=== PATIENT | male | born 1945 | race Caucasian/White ===

== ENCOUNTER 2023-03-28 12:01 | Emergency (ER) | payer MEDICARE, SELFPAY ==
[2023-03-28 12:22] VITALS: BP 131/77
--- NOTE | 2023-03-28 13:52 | ED.GENMED ---
History of Present Illness
General
Chief Complaint: Musculo-Skeletal Complaint
Source: patient
Exam Limitations: none
Time Seen by Provider: 03/28/23 12:33
Nursing documentation reviewed up to this point in time: agreed with
Travel History
Have you had any contact with someone who has COVID-19?: No
Do you have any symptoms of coronavirus? Fever > 100 degrees, chills, cough, shortness of breath, sore throat, loss of taste or smell, muscle aches, or headache?: No
History of Present Illness
History of Present Illness:
37-year-old male with past ministry of hypertension hyperlipidemia, asthma presenting to the emergency department today with concerns of right hip and right knee discomfort worsening over the past few weeks feels like it is 'giving out'
occasionally. Denies any fevers redness swelling warmth abdominal pain nausea vomiting.
Past History
Past History
ED Past Medical History: HTN, Hypercholesterolemia and Other (gout)
ED Past Surgical History: Orthopedic (back surgery)
Social History
Tobacco: Non-smoker
Alcohol: Occasional
Drug: None
Personal: Partner
Living: with family
Review of Systems
Review of Systems
Allergies reviewed?: Yes
All Other Systems: ROS reviewed and negative except as documented in HPI and ROS
Phy Exam
Physical Exam
Physical Exam:
GENERAL: Alert , in no apparent distress
EYE: pupils equal and reactive
NECK: Supple, no significant adenopathy.
ENT: o/p clr, mmm.
CARDIAC: Regular rate and rhythm .
LUNGS: Clear breath sounds bilaterally, no acute respiratory distress, no wheezes/rales/rhonchi
ABDOMEN: Soft, without focal tenderness, no r/g, no cvat
NEUROLOGICAL: Alert and oriented, no focal neuro deficits
SKIN: Warm and dry, skin intact.
MUSCULOSKELETAL: No edema, well perfused.
PSYCH: Normal and appropriate interaction.
Course
Orders/Labs/Results
Orders:
Orders
03/28/23 12:33
CR Knee- Right 4 Or More View* Urgent
Comment:
Reason For Exam: knee pin
Hip, Right 2-3 Views [CR Hip - RT w/wo Pel 2-3 Vw*] Urgent
Comment:
Reason For Exam: right hip pain
Include a pelvis x-ray?: Yes
Vital Signs
Initial and Last Documented VS:
Initial Vital Signs
Temp Pulse Resp BP Pulse Ox
98.7 F 109 18 131/77 98
03/28/23 12:22 03/28/23 12:22 03/28/23 12:22 03/28/23 12:22 03/28/23 12:22
Last Documented Vital Signs
Temp Pulse Resp BP Pulse Ox
98.7 F 109 18 131/77 98
03/28/23 12:22 03/28/23 12:22 03/28/23 12:22 03/28/23 12:22 03/28/23 12:22
MDM/Problems Addressed
MDM/Problems Addressed:
37-year-old male presenting to the emergency department today with concerns of right-sided hip and knee discomfort and the sensation of his right hip 'giving out' occasionally. Here he had an x-ray with significant arthritis but no acute injuries.
Able to range fully at all joints no redness or warmth no signs of infection. Patient with likely symptoms secondary to arthritis plan for outpatient follow-up with orthopedics. Return precautions given. Advised for physical therapy as well.
*Critical Care Note
Total Time (30-74mins, 75-104mins- exclusive of procedures): Not Applicable
ED Attending Note
-
Portions of this chart may have been created with voice recognition software.� Occasional wrong word or��sound alike� substitutions may have occurred due to the inherent limitations of voice recognition software.
Discharge Plan
Departure
Patient Disposition: Home (Routine Discharge)
Date of Disposition: 03/28/23
Time of Disposition: 13:53
Patient with high blood pressure during this ER visit?: No
Condition: Good
Covid-19: Not Applicable
Discharge Problem:
Arthritis, hip
Instructions: Hip Pain (DC)
Prescriptions:
No Action
atorvastatin 20 MG tablet
20 mg PO DAILY
aspirin 81 MG tablet,delayed release (DR/EC)
81 mg PO DAILY
wwhlxqjg-hli-WJ-lycopen-lutein [Centrum Silver] 1 EACH tablet
1 ea PO DAILY
losartan 50 MG tablet
100 mg PO DAILY
allopurinol 300 MG tablet
300 mg PO DAILY
B-complex with vitamin C 1 CAPLET tablet
1 cap PO DAILY
furosemide 40 MG tablet
40 mg PO DAILY
benzonatate 100 MG capsule
100 mg PO TIDPRN PRN (Reason: coughing) Qty: 20 0RF
ondansetron 4 MG tablet,disintegrating
4 mg PO TIDPRN PRN (Reason: nausea) Qty: 12 0RF
doxycycline hyclate 100 MG capsule
100 mg PO Q12 Qty: 14 0RF
Referrals:
Nathan Dawson MD [Active] - Follow up in 1 week
Flip Montoya MD [Family Provider] -
Activity Restrictions/Additional Instructions:
You came to the emergency department today with concerns of hip and knee discomfort. Your x-ray did not show any acute injuries but does show arthritis. This could be causing your symptoms currently. Please appropriately rest follow-up with
physical therapy and orthopedics for further management. Return to the emergency department for any worsening, new or concerning symptoms.
Interventions
Interventions:
*Risk Screen - Suicide Last Done: 03/28/23 12:24
*General Assessment Last Done: 03/28/23 12:24
*Neglect/Abuse Screening Last Done: 03/28/23 12:24
== END 2023-03-28 14:10 | disposition home or self-care (01) ==
LOC: EMR 12:01
PROVIDERS: EMERGENCY PHYSICIAN Emergency Medicine; FAMILY PHYSICIAN Internal Medicine Geriatric Medicine
DX: M16.11 Unilateral primary osteoarthritis, right hip (principal); I10 Essential (primary) hypertension; E78.00 Pure hypercholesterolemia, unspecified; J45.909 Unspecified asthma, uncomplicated
CPT/HCPCS: 99283; 73502; 73564

== ENCOUNTER → 2023-04-13 11:52 | Outpatient (REF) | payer MEDICARE, SELFPAY ==
[2023-04-13 12:46] LABS: % Basophils 0.5 % (0-2); % Eosinophils 0.2 % (0-6); % Immature Granulocytes 0.7 % (0-0.5); % Lymphocytes 22.2 % (20.5-51.1); % Monocytes 15.5 % (1.7-9.3); % Neutrophils 60.9 % (42.2-75.2); Absolute Lymphocytes 1.3 10^3/uL (1.2-3.4); Absolute Monocytes 0.9 10^3/uL (0.1-0.6); Absolute Neutrophils 3.5 10^3/uL (1.4-6.5); Hematocrit 37.3 % (39.0-52.0); Mean Corp Hgb Conc. 34.9 g/dL (33.0-37.0); Mean Corpuscular Hgb 36.2 pg (27.0-31.0); Mean Corpuscular Volume 103.9 fL (80.0-94.0); Mean Platelet Volume 10.8 fL (7.4-10.4); Nucleated Red Blood Cells % 0 % (-); Platelet Count 160 10^3/uL (130-400); Red Blood Cell Count 3.59 10^6/uL (4.70-6.10); Red Cell Dist. Width 13.2 % (11.5-14.5); White Blood Cell Count 5.8 10^3/uL (4.8-10.8)
[2023-04-13 13:24] LABS: Urine Albumin Negative (Neg - Trace); Urine Bilirubin 1+ (Negative); Urine Character Clear (Clear); Urine Color Yellow; Urine Glucose Negative (Negative); Urine Ketone Trace (Negative); Urine Leukocyte Trace (Negative); Urine Nitrite Negative (Negative); Urine Occult Blood Negative (Negative); Urine Specific Gravity 1.005 (<1.030); Urine Urobilinogen 1+ (Neg - 1+)
[2023-04-13 13:37] LABS: ALT (SGPT) 97 U/L (0-50); AST (SGOT) 216 U/L (17-59); Albumin 4.6 g/dl (3.5-5.0); Alkaline Phosphatase 111 U/L (38-126); Blood Urea Nitrogen 14 mg/dl (9-20); Calcium 10.3 mg/dl (8.4-10.2); Carbon Dioxide 30 mmol/L (22-30); Chloride 99 mmol/L (98-107); Glucose 134 mg/dl (70-99); Sodium 137 mmol/L (135-145); Total Bilirubin 1.6 mg/dl (0.2-1.3); Total Cholesterol 224 mg/dl (50-199); Total Protein 7.7 g/dl (6.3-8.2); Triglyceride 97 mg/dl (10-149); Very Low Density Lipoprotein 19 mg/dl (0-30); eGFR > 60.00
[2023-04-13 13:48] LABS: HDL Cholesterol 116 mg/dl; LDL Cholesterol, Calculated 89 mg/dl
[2023-04-13 13:57] LABS: Urine Red Blood Cell None Seen /HPF (0-2); Urine White Cell 0-2 /HPF (0-5)
[2023-04-13 14:04] LABS: PSA, Total - Diagnostic 1.51 ng/ml (0.0-4.0)
[2023-04-14 11:06] LABS: Glycohemoglobin (HgbA1c) 5.9 % (4.0-5.6)
== END ==
LOC: REG 11:52
PROVIDERS: ATTENDING PHYSICIAN Internal Medicine Geriatric Medicine; REFERRING PHYSICIAN Orthopaedic Surgery
DX: M48.062 Spinal stenosis, lumbar region with neurogenic claudication (principal); M10.9 Gout, unspecified; E78.2 Mixed hyperlipidemia; I10 Essential (primary) hypertension; G47.33 Obstructive sleep apnea (adult) (pediatric); Z00.00 Encounter for general adult medical examination without abnormal findings; Z01.89 Encounter for other specified special examinations; Z13.89 Encounter for screening for other disorder; R97.20 Elevated prostate specific antigen [PSA]; E11.9 Type 2 diabetes mellitus without complications
CPT/HCPCS: 36415; 80053; 80061; 81003; 81015; 83036; 84153; 84443; 85025

== ENCOUNTER → 2023-04-20 12:08 | Outpatient (REF) | payer MEDICARE, SELFPAY ==
[2023-04-20 17:30] LABS: Urine Albumin Trace (Neg - Trace); Urine Bilirubin Negative (Negative); Urine Character Clear (Clear); Urine Color Yellow; Urine Glucose Negative (Negative); Urine Ketone Negative (Negative); Urine Leukocyte Negative (Negative); Urine Nitrite Negative (Negative); Urine Occult Blood Negative (Negative); Urine Urobilinogen Negative (Neg - 1+)
== END ==
LOC: CLAB 12:08
PROVIDERS: ATTENDING PHYSICIAN Nurse Practitioner Family
DX: N50.1 Vascular disorders of male genital organs (principal)
CPT/HCPCS: 81003

== ENCOUNTER 2023-05-03 06:09 | Inpatient (IN) | payer MEDICARE, SELFPAY ==
--- NOTE | 2023-04-05 13:11 | CM ---
Patient is scheduled for an elective R TKR on 05/03/23. Spoke with patient's prior to surgery via telephone. Introduced role of Orthopedic Navigator. He reports that he and patient live in a one story home. There is one step to enter. Patient
currently needs assistance with getting in/out of a chair and getting his legs in/out of bed. He is able to dress, toilet and ambulate with a rolling walker on his own. In addition to the walker, patient has a cane. He has never had VN services. PCP
is Dr. Montoya.
Discussed orthopedic program and post surgical plans. Reviewed anticipated length of stay and that goal is for patient to return home at discharge. He is in agreement with tentative plan. Patient will benefit from VN services upon discharge.
Patient will complete online education.
Plan: Orthopedic Navigator will remain available to assist with the care of patient and will reassess discharge needs after surgery.
[2023-04-13 14:00] VITALS: BMI 36.1
[2023-04-13 15:20] VITALS: BMI 36.1
[2023-05-03] VITALS (40 sets, daily range): BP systolic 63–189; BP diastolic 32–108; PULSE 106–121; O2SAT 96; BMI 36.1
[2023-05-03] MEDS: CELEBREX 200 MG PO (07:23)
[2023-05-03] MEDS: TYLENOL 650 MG PO ×4 (07:23→23:02)
[2023-05-03] MEDS: NORMOSOL-R 1000 IV ×2 (07:24→10:04)
[2023-05-03] MEDS: ROXICODONE 5 MG PO (10:07)
[2023-05-03] MEDS: SUBLIMAZE 25 MCG IV (11:47)
--- NOTE | 2023-05-03 12:07 | SUR.PHASEI ---
1200 Pt in to evaluate pt and bp elevated. Pt medicated with fentanyl prior to PT,. Awaiting pt's room to be cleaned.
[2023-05-03] MEDS: SUBLIMAZE 50 MCG IV (12:16)
[2023-05-03] MEDS: ZYLOPRIM 300 MG PO (13:57)
[2023-05-03] MEDS: COZAAR 25 MG PO (13:58)
[2023-05-03] MEDS: ROXICODONE 10 MG PO ×3 (13:59→23:02)
[2023-05-03] MEDS: ULTRAM PO (14:05)
[2023-05-03] MEDS: LIPITOR PO (14:05)
[2023-05-03] MEDS: NEURONTIN PO (14:05)
[2023-05-03] MEDS: ANCEF 5 IV ×2 (16:53→23:02)
[2023-05-03] MEDS: ASPIRIN 325 MG PO (16:57)
--- NOTE | 2023-05-03 17:32 | PTCARENOTE ---
Received patient from [facility] via bed around 1300 in stable condition. Patient on tele- SR/ST. Neurovascular check within normal limits. Foot pumps and Nilesh stockins on. Patient unable to void despite several attempts. Bladder scanned for 440 ml and
straight cathed for 575 ml. Will continue to monitor. Call beasley in reach.
[2023-05-03] MEDS: ULTRAM 50 MG PO (20:18)
[2023-05-03] MEDS: NEURONTIN 300 MG PO (20:18)
[2023-05-03] MEDS: DECADRON 4 MG PO (20:18)
[2023-05-03] MEDS: SENOKOT 17.1999999999999993 MG PO (20:19)
[2023-05-03] MEDS: COLACE 100 MG PO (20:19)
[2023-05-03] MEDS: TORADOL 15 MG IV (20:19)
[2023-05-03] MEDS: BACTROBAN 2% OINTMENT 1 APPLIC NASAL (20:20)
--- NOTE | 2023-05-03 21:40 | PTCARENOTE ---
Patient refused to get OOB at this time
[2023-05-03] MEDS: DESYREL 50 MG PO (23:01)
[2023-05-03] MEDS: PEPCID 20 MG PO (23:01)
[2023-05-04] VITALS (9 sets, daily range): BP systolic 157–197; BP diastolic 81–118; PULSE 81–86; O2SAT 95
--- NOTE | 2023-05-04 01:10 | PTCARENOTE ---
Addendum entered by Julissa Christine RN 05/04/23 05:19:
P-180/106, HR- 80s-90s. JASMIN Loredo made aware, will give ordered 0800am [employer] now as per advise.
Original Note:
BP- 169/100 ( manual ), 198/110 ( automatic), HR- 110. No pain. Asymptomatic. JASMIN Loredo made aware. Will recheck in AM as per advise.
[2023-05-04] MEDS: ROXICODONE 10 MG PO (04:30)
[2023-05-04] MEDS: COZAAR 25 MG PO (04:35)
[2023-05-04] MEDS: TYLENOL 650 MG PO ×3 (04:37→11:28)
[2023-05-04] MEDS: CELEBREX 200 MG PO (08:28)
[2023-05-04] MEDS: ASPIRIN 325 MG PO (08:29)
[2023-05-04] MEDS: ULTRAM 50 MG PO (08:29)
[2023-05-04] MEDS: DECADRON 4 MG PO (08:29)
[2023-05-04] MEDS: LIPITOR 20 MG PO (08:29)
[2023-05-04] MEDS: COLACE 100 MG PO (08:29)
[2023-05-04] MEDS: ZYLOPRIM 300 MG PO (08:29)
[2023-05-04] MEDS: NEURONTIN 300 MG PO (08:29)
[2023-05-04] MEDS: SENOKOT 17.1999999999999993 MG PO (08:29)
[2023-05-04] MEDS: TORADOL 15 MG IV (08:30)
[2023-05-04] MEDS: BACTROBAN 2% OINTMENT 1 APPLIC NASAL (08:30)
[2023-05-04] MEDS: COZAAR 75 MG PO (08:41)
--- NOTE | 2023-05-04 09:08 | CM ---
Addendum entered by Maliha Rivera 05/04/23 11:13:
Patient worked with PT and OT and did well; he will be able to return home. Met with patient and his and again reviewed VN services.
Original Note:
Reviewed chart and held rounds with PT, OT and nursing. Patient admitted as planned for elective R TKR. Met with patient at bedside. Confirmed information previously obtained for assessment. Also discussed discharge plans. The plan, at this time, is
for patient to return home at discharge. He will have support from when he goes home. Reviewed VN services including start of care (tentatively 05/04), services to be ordered (PT, SN) and frequency/duration of services. Options list provided
and PAC data reviewed. Patient selects [facility].
Patient has a cane, rolling walker, wheel chair, raised toilet seat with rails and shower seat at home.
VN referral was completed and sent to [facility] through [employer] with request for start of care on 05/04. Confirmation received of their ability to accept case. retail store clerk to fax discharge instructions to [phone] when complete.
[facility] will use [facility] for [facility]
Discharge plans were reviewed with patient's on 05/03. He will be present for therapy today.
--- NOTE | 2023-05-04 11:00 | W.PN.ORTHO ---
Today's Communication / Plan
-
d/c
Assessment
.
Distal Motor Intact: Yes
Dressing:
Clean, dry and intact.
Assessment:
HTN-accelerated--home antihypertensives xdbqlcc-rpjpragt-OS elevation lkely secondary to pain
Plan
.
Surgery / Date: O/A s/p R TKA Dr. Gómez 05/03/23
DVT Prophylaxis: Aspirin
Activity:
Out of bed.
PT/OT
Subjective
.
.:
Patient resting comfortably.
Vital Signs and Labs
.
Vital Signs and Labs:
Temp Pulse Resp BP Pulse Ox
98.1 F 101 18 157/91 94
05/04/23 07:35 05/04/23 10:49 05/04/23 10:49 05/04/23 10:49 05/04/23 07:35
Non-invasive Hgb result: 12.5
Physical Exam
-
HEENT: No pallor, cyanosis, or jaundice. Throat clear.
NECK: Supple. No JVD.
RESPIRATORY: Lungs clear to auscultation.
CVS: S1, S2 normal. RRR.� No murmur, rub or gallop.
ABDOMEN: Soft, non-tender. No distension. BS+/normal.
EXTREMITIES: strength equal, no calf pain with palpation
TRANSPLANT SURGEON: AOx3. No focal deficits. industrial editor grossly intact
--- NOTE | 2023-05-04 11:10 | W.DS.TRANS ---
DC Summary - Social Science Instructor
-
Discharge Instructions:
Discharge Diagnosis/Procedures O/A s/p R TKA Dr. Gómez 05/03/23
Diet As tolerated
Activity With Walker
Driving Restrictions No driving
Other Services VN,PT
Instructions:
Stand-Alone Forms: Total Hip/Knee Replacement D/C
Changes to Home Medications: Yes
Discharge Medications:
DC Medications w/original date entered in [facility]
atorvastatin 20 mg tablet 20 mg PO DAILY High Cholesterol 05/19/18
hggytdmv-mgw-fxhwv acid 0.4 mg-lycopene 300 mcg-lutein 250 mcg tablet (Centrum Silver) 1 ea PO DAILY Supplement 05/19/18
allopurinol 300 mg tablet 300 mg PO DAILY Gout 08/11/21
furosemide 40 mg tablet 20 mg PO DAILY Fluid Retention/Swelling 08/11/21
losartan 100 mg tablet 100 mg PO DAILY Blood Pressure 04/10/23
trazodone 50 mg tablet 50 - 100 mg PO HS sleep 04/10/23
mupirocin 2 % topical ointment 1 applic topical BID infection prevention #1 tube 04/13/23
tamsulosin 0.4 mg capsule (Flomax) 0.4 mg PO HS urinary retention #7 caps 04/13/23
Saccharomyces boulardii 250 mg capsule (Florastor) 250 mg PO BID #1 cap 05/04/23
acetaminophen 325 mg capsule (Tylenol) 650 mg PO QID #2 caps 05/04/23
aspirin 325 mg tablet 325 mg PO DAILY blood clot prevention #1 tab 05/04/23
cefadroxil 500 mg capsule 500 mg PO BID infection prevention #14 caps 05/04/23
docusate sodium 100 mg capsule (Colace) 100 mg PO BID stool softner #1 cap 05/04/23
famotidine 20 mg tablet 20 mg PO HS GI prophylaxis #30 tabs 05/04/23
gabapentin 300 mg capsule 300 mg PO BID sleep/pain #20 caps 05/04/23
magnesium hydroxide 400 mg/5 mL oral suspension (Milk of Magnesia) 30 ml PO HS PRN Constipation #1 mL 05/04/23
meloxicam 15 mg tablet 15 mg PO DAILY anti-inflammatory #14 tabs 05/04/23
oxycodone 5 mg tablet 5 - 10 mg PO Q6HPRN PRN 1 tab moderate-2 tabs severe pain #30 tabs 05/04/23
prednisone 10 mg tablet 40 mg PO TAPER inflammation #20 tabs 05/04/23
sennosides 8.6 mg tablet (Senokot) 17.2 mg PO BID laxative #2 tabs 05/04/23
tramadol 50 mg tablet 50 mg PO BID #20 tabs 05/04/23
Home Medication Changes
tamsulosin 0.4 mg capsule (Flomax) 0.4 mg PO HS urinary retention #7 caps 04/13/23�
Saccharomyces boulardii 250 mg capsule (Florastor) 250 mg PO BID #1 cap 05/04/23�
cefadroxil 500 mg capsule 500 mg PO BID infection prevention #14 caps 05/04/23�
famotidine 20 mg tablet 20 mg PO HS GI prophylaxis #30 tabs 05/04/23�
gabapentin 300 mg capsule 300 mg PO BID sleep/pain #20 caps 05/04/23�
oxycodone 5 mg tablet 5 - 10 mg PO Q6HPRN PRN 1 tab moderate-2 tabs severe pain #30 tabs 05/04/23�
prednisone 10 mg tablet 40 mg PO TAPER inflammation #20 tabs 05/04/23�
tramadol 50 mg tablet 50 mg PO BID #20 tabs 05/04/23�
Pending Results: No
[2023-05-04] MEDS: DECADRON 4 MG IV (11:24)
[2023-05-04] MEDS: LASIX 20 MG PO (11:24)
--- NOTE | 2023-05-04 13:29 | PTCARENOTE ---
PT with elevated BPs. provider Aide Zimmerman made aware. See vitals for BP numbers. Provider Erasmo is comfortable with Dc with most recent reading. pt asymptomatic.
== END 2023-05-04 14:09 | disposition home health service (06) | DRG 470 ==
LOC: 2 SOUTH 06:09
PROVIDERS: ADMITTING PHYSICIAN Orthopaedic Surgery; FAMILY PHYSICIAN Internal Medicine Geriatric Medicine
PROC: 0SRC0J9 Replacement of Right Knee Joint with Synthetic Substitute, Cemented, Open Approach (ICD-10-PCS; 2023-05-03)
DX: M17.11 Unilateral primary osteoarthritis, right knee (principal); I47.20 Ventricular tachycardia, unspecified; E66.9 Obesity, unspecified; M10.9 Gout, unspecified; I10 Essential (primary) hypertension; K75.9 Inflammatory liver disease, unspecified; K76.0 Fatty (change of) liver, not elsewhere classified; M48.00 Spinal stenosis, site unspecified; E78.5 Hyperlipidemia, unspecified; R33.9 Retention of urine, unspecified; G47.00 Insomnia, unspecified; G47.33 Obstructive sleep apnea (adult) (pediatric); Z68.36 Body mass index [BMI] 36.0-36.9, adult; Z91.199 Patient's noncompliance with other medical treatment and regimen due to unspecified reason; Z79.1 Long term (current) use of non-steroidal anti-inflammatories (NSAID)
CPT/HCPCS: 36415; 73560; 87070; 97110; 97116; 97163; 97167; 97530; 97535; C1713; C1776

== ENCOUNTER 2023-05-29 12:07 | Outpatient (RCR) | payer MEDICARE, SELFPAY | END 2023-05-29 23:59 | disposition home or self-care (01) | LOC: RPT 12:07 | PROVIDERS: ATTENDING PHYSICIAN Physician Assistant; FAMILY PHYSICIAN Internal Medicine Geriatric Medicine | DX: Z47.1 Aftercare following joint replacement surgery (principal); Z73.6 Limitation of activities due to disability; R26.89 Other abnormalities of gait and mobility; M25.561 Pain in right knee; M25.551 Pain in right hip; Z96.651 Presence of right artificial knee joint | CPT/HCPCS: 97010; 97110; 97162; 97530 ==

== ENCOUNTER 2023-06-29 11:00 | Outpatient (RCR) | payer MEDICARE, SELFPAY | END 2023-06-29 23:59 | disposition home or self-care (01) | LOC: RPT 11:00 | PROVIDERS: ATTENDING PHYSICIAN Physician Assistant; FAMILY PHYSICIAN Internal Medicine Geriatric Medicine | DX: Z47.1 Aftercare following joint replacement surgery (principal); Z96.651 Presence of right artificial knee joint; Z73.6 Limitation of activities due to disability | CPT/HCPCS: 97110; 97112; 97530 ==

== ENCOUNTER 2023-07-06 11:02 | Outpatient (RCR) | payer MEDICARE, SELFPAY | END 2023-07-06 23:59 | disposition home or self-care (01) | LOC: RPT 11:02 | PROVIDERS: ATTENDING PHYSICIAN Physician Assistant; FAMILY PHYSICIAN Internal Medicine Geriatric Medicine | DX: Z47.1 Aftercare following joint replacement surgery (principal); Z96.651 Presence of right artificial knee joint; Z73.6 Limitation of activities due to disability | CPT/HCPCS: 97110; 97530 ==

== ENCOUNTER → 2023-12-04 13:40 | Outpatient (REF) | payer MEDICARE, SELFPAY | LOC: HWRAD 13:40 | PROVIDERS: ATTENDING PHYSICIAN Internal Medicine Geriatric Medicine | DX: R26.89 Other abnormalities of gait and mobility (principal); S19.9XXA Unspecified injury of neck, initial encounter; W19.XXXA Unspecified fall, initial encounter | CPT/HCPCS: 70450; 72040 ==

== ENCOUNTER 2023-12-15 17:04 | Emergency (ER) | payer MEDICARE, SELFPAY ==
--- NOTE | 2023-12-15 17:16 | ED.GENMED ---
ED Provider Triage
<Chavo Nguyen PA-C - Last Filed: 12/15/23 17:20>
-
Patient seen by provider in Triage?: Seen in Triage
Attestation: A medical screening examination has been initiated by a qualified medical provider. Based on the assessment performed at this time, it has been determined that an emergent medical condition may exist and the patient has been informed
that further medical evaluation and possible additional diagnostic testing may be needed.
HPI: 78-year-old male presenting to the emergency department for evaluation of reported generalized shaking noting that if he holds his arm or leg for 10 to 20 seconds he just randomly starts shaking. Patient notes that he has been having falls
since a right knee surgery that was a few months ago. Patient primary care wanted him to come to the ER yesterday but patient decided to wait it out and came today. Patient notes no pain, fevers or any other infectious symptoms presently. Labs
ordered. Patient otherwise hemodynamically stable.
GENERAL: Alert , in no apparent distress
EYE: No visual abnormalities.
NECK: Trachea midline
ENT: No visible abnormalities.
LUNGS: No acute respiratory distress
NEUROLOGICAL: Alert and oriented
SKIN: Skin intact. No visible changes.
MUSCULOSKELETAL: Moving extremities normally
PSYCH: Normal and appropriate interaction.
This is a medical evaluation conducted in person to initiate diagnostic evaluation and provide initial therapeutics. Please see further documentation by the treating clinician.
History of Present Illness
<Chavo Nguyen PA-C - Last Filed: 12/15/23 17:20>
General
Chief Complaint: Fall
Time Seen by Provider: 12/15/23 20:14
<Edd Guevara DO - Last Filed: 12/15/23 20:44>
History of Present Illness
History of Present Illness:
TIME OF INITIAL ENCOUNTER: 8:15 PM
HPI: 78-year-old male presenting to the emergency department for evaluation of reported generalized shaking noting that if he holds his arm or leg for 10 to 20 seconds he just randomly starts shaking. Patient notes that he has been having falls
since a right knee surgery that was a few months ago. Patient primary care wanted him to come to the ER yesterday but patient decided to wait it out and came today. Patient notes no pain, fevers or any other infectious symptoms presently.
EXAM:
GENERAL: Well appearing in no distress, elevated BMI
HEENT: Moist oral mucosa, periorbital edema noted
CARDIOVASCULAR: No murmurs, normal heart rate, regular rhythm, No chest wall tenderness
PULMONARY: No respiratory distress, breath sounds are clear and equal
ABDOMEN: Soft with no peritoneal signs, no tenderness
NEUROLOGIC: Fair strength all extremities, no coordination deficits, mild asterixis noted
PSYCHIATRIC: Appropriate mental status, normal insight and judgement
EXTREMITIES: Nontender, no edema, moves all extremities equally
SKIN: No rash, no lesions, some generalized erythema noted to the face suggestive of alcohol use disorder
NUMBER AND COMPLEXITY OF PROBLEMS ADDRESSED AT THE ENCOUNTER
� Chronic conditions affecting care: High blood pressure, hyperlipidemia
� Acute Exacerbation and/or Progression of Chronic Illness: This is a subacute but worsening problem
� Differential Diagnosis includes: Alcohol related tremor, essential tremor, intracranial mass unlikely based on recent CT imaging
AMOUNT AND/OR COMPLEXITY OF DATA TO BE REVIEWED AND ANALYZED
� I performed an independent evaluation of and my interpretation is:
EKG:
CT:
X-rays:
Laboratory Studies: White count normal 8.7, MCV is noted to be 105, hemoglobin normal, bicarb slightly high at 32, AST 200, ALT 63, alk phos 127
Other:
� Review of other/old records: I reviewed the CT report from 12/04/2023 I spoke to his at bedside
� Clinical information was obtained by an independent historian:
� Prescriptions/Medications Considered but not given: Considered benzos
� Further testing considered but not performed:
RISK OF COMPLICATIONS AND/OR MORBIDITY OR MORTALITY OF PATIENT MANAGEMENT
� Social determinants of health affecting care: Lives at home
� Discussion with other providers: I discussed case with Dr. Joshua who agrees with trying beta-rosario to help treat tremor in the setting of alcohol use disorder
� Escalation of care including admission/observation vs risk of discharge considered: No clear indication for admission to the hospital. I did strongly recommend patient to decrease to stop the alcohol use. I offered to have
[facility] involved however the patient declines. Will start beta-rosario.
ANY OTHER UPDATES:
Past History
<Chavo Nguyen PA-C - Last Filed: 12/15/23 17:20>
Past History
ED Past Medical History: HTN, Hypercholesterolemia and Other (gout)
ED Past Surgical History: Orthopedic (back surgery)
Social History
Tobacco: Non-smoker
Alcohol: Occasional
Drug: None
Personal: Partner
Living: with family
Phy Exam
<Edd Guevara DO - Last Filed: 12/15/23 20:44>
Physical Exam
Physical Exam:
See HPI
Course
<Chavo Nguyen PA-C - Last Filed: 12/15/23 17:20>
Orders/Labs/Results
Orders:
Orders
12/15/23 17:24
Complete Blood Count/With Diff Urgent
Comprehensive Metabolic Panel Urgent
Magnesium Urgent
Comment: ADDON
12/15/23 20:33
Add On- LAB Urgent
Tests Added?: magnesium
Abnormal Lab Results
12/15/23
17:24
RBC 3.61 L 10^6/uL
(4.70-6.10)
Hct 38.0 L %
(39.0-52.0)
MCV 105.3 H fL
(80.0-94.0)
MCH 37.1 H pg
(27.0-31.0)
MPV 10.8 H fL
(7.4-10.4)
Absolute Lymphs (auto) 4.4 H 10^3/uL
(1.2-3.4)
Absolute Monos (auto) 1.2 H 10^3/uL
(0.1-0.6)
Neutrophils % 34.2 L %
(42.2-75.2)
Monocytes % 14.0 H %
(1.7-9.3)
Carbon Dioxide 32 H mmol/L
(22-30)
Glucose 140 H mg/dl
(70-99)
AST 200 H U/L
(17-59)
ALT 63 H U/L
(0-50)
Alkaline Phosphatase 127 H U/L
(38-126)
12/15/23 17:24
12/15/23 17:24
Vital Signs
Initial and Last Documented VS:
Initial Vital Signs
Temp Pulse Resp BP Pulse Ox
98.9 F 96 18 155/85 98
12/15/23 17:17 12/15/23 17:17 12/15/23 17:17 12/15/23 17:17 12/15/23 17:17
Last Documented Vital Signs
Temp Pulse Resp BP Pulse Ox
98.9 F 96 18 159/79 96
12/15/23 17:17 12/15/23 17:17 12/15/23 17:17 12/15/23 20:19 12/15/23 20:20
<Edd Guevara, DO - Last Filed: 12/15/23 20:44>
Orders/Labs/Results
Orders:
Orders
12/15/23 17:24
Complete Blood Count/With Diff Urgent
Comprehensive Metabolic Panel Urgent
Magnesium Urgent
Comment: ADDON
12/15/23 20:33
Add On- LAB Urgent
Tests Added?: magnesium
Abnormal Lab Results
12/15/23
17:24
RBC 3.61 L 10^6/uL
(4.70-6.10)
Hct 38.0 L %
(39.0-52.0)
MCV 105.3 H fL
(80.0-94.0)
MCH 37.1 H pg
(27.0-31.0)
MPV 10.8 H fL
(7.4-10.4)
Absolute Lymphs (auto) 4.4 H 10^3/uL
(1.2-3.4)
Absolute Monos (auto) 1.2 H 10^3/uL
(0.1-0.6)
Neutrophils % 34.2 L %
(42.2-75.2)
Monocytes % 14.0 H %
(1.7-9.3)
Carbon Dioxide 32 H mmol/L
(22-30)
Glucose 140 H mg/dl
(70-99)
AST 200 H U/L
(17-59)
ALT 63 H U/L
(0-50)
Alkaline Phosphatase 127 H U/L
(38-126)
12/15/23 17:24
12/15/23 17:24
Vital Signs
Initial and Last Documented VS:
Initial Vital Signs
Temp Pulse Resp BP Pulse Ox
98.9 F 96 18 155/85 98
12/15/23 17:17 12/15/23 17:17 12/15/23 17:17 12/15/23 17:17 12/15/23 17:17
Last Documented Vital Signs
Temp Pulse Resp BP Pulse Ox
98.9 F 96 18 159/79 96
12/15/23 17:17 12/15/23 17:17 12/15/23 17:17 12/15/23 20:19 12/15/23 20:20
<Edd Guevara DO - Last Filed: 12/15/23 20:44>
*Critical Care Note
Total Time (30-74mins, 75-104mins- exclusive of procedures): Not Applicable
ED Attending Note
<Chavo Nguyen PA-C - Last Filed: 12/15/23 17:20>
-
Portions of this chart may have been created with voice recognition software.� Occasional wrong word or��sound alike� substitutions may have occurred due to the inherent limitations of voice recognition software.
Discharge Plan
Departure
Patient Disposition: Home (Routine Discharge)
Date of Disposition: 12/15/23
Time of Disposition: 20:38
Patient with high blood pressure during this ER visit?: Yes
Discharge Problem:
Tremor
Instructions: Tremor, Alcohol Use Disorder (DC)
Prescriptions:
New
propranolol [Inderal LA] 60 mg capsule,extended release 24 hr
60 mg PO DAILY Qty: 30 0RF
No Action
atorvastatin 20 MG tablet
20 mg PO DAILY
Centrum Silver 1 EACH tablet
1 ea PO DAILY
allopurinol 300 MG tablet
300 mg PO DAILY
furosemide 40 MG tablet
20 mg PO DAILY
trazodone 50 mg Tablet
50 - 100 mg PO HS
losartan 100 mg Tablet
100 mg PO DAILY
mupirocin 2 % ointment
1 applic topical BID Qty: 1 0RF
tamsulosin [Flomax] 0.4 mg capsule
0.4 mg PO HS Qty: 7 0RF
Patient Comments:
started 3 day ago as ordered
Rx Instructions:
start 3 nights b/f surgery
aspirin 325 mg tablet
325 mg PO DAILY Qty: 1 0RF
Rx Instructions:
Take with food
cefadroxil 500 mg capsule
500 mg PO BID Qty: 14 0RF
Rx Instructions:
*Take w/ food
*Take w/ probiotic
*POST-OP USE
docusate sodium [Colace] 100 mg capsule
100 mg PO BID Qty: 1 0RF
famotidine 20 mg tablet
20 mg PO HS Qty: 30 0RF
Rx Instructions:
post-op
Saccharomyces boulardii [Florastor] 250 mg capsule
250 mg PO BID Qty: 1 0RF
gabapentin 300 mg capsule
300 mg PO BID Qty: 20 0RF
meloxicam 15 mg tablet
15 mg PO DAILY Qty: 14 0RF
Rx Instructions:
take with food
post-op
magnesium hydroxide [Milk of Magnesia] 400 mg/5 mL suspension
30 ml PO HS PRN (Reason: Constipation) Qty: 1 0RF
sennosides [Senokot] 8.6 mg tablet
17.2 mg PO BID Qty: 2 0RF
prednisone 10 mg tablet
40 mg PO TAPER Qty: 20 0RF
Rx Instructions:
4 TABS X 2 DAYS, 3 TABS X 2 DAYS, 2 TABS X 2 DAYS, 1 TAB X 2 DAYS, THEN STOP
acetaminophen [Tylenol] 325 mg capsule
650 mg PO QID Qty: 2 0RF
tramadol 50 mg tablet
50 mg PO BID Qty: 20 0RF
Rx Instructions:
Dx Orthopedic surgery
Ongoing therapy
post-op
Referrals:
June Joshua MD [Active] - Next open appointment
Activity Restrictions/Additional Instructions:
I reviewed your case with the neurologist on-call. We agreed to have you start a beta-rosario called Inderal. We are starting this is a low dose. Follow with your primary care doctor. The beta-rosario can be used to help treat tremor. Try to
wean yourself off of as this is likely a contributing factor for tremor.
Interventions
Interventions:
*Risk Screen - Suicide Last Done: 12/15/23 17:17
*General Assessment Last Done: 12/15/23 17:17
*Neglect/Abuse Screening Last Done: 12/15/23 17:17
ED- Fall Risk Assessment Last Done: 12/15/23 20:20
*ED COVID-19 Vaccine History Last Done: 12/15/23 17:17
ED-Musculoskeletal Assessment Last Done: 12/15/23 20:20
ED- Neurological Assessment Last Done: 12/15/23 20:20
ED-Skin Assessment Last Done: 12/15/23 20:20
Discharge Date and Time
Print Language: SAMOAN
[2023-12-15 17:17] VITALS: BP 155/85
[2023-12-15 17:38] LABS: Hemoglobin 13.4 g/dL (13.0-18.0); Mean Corp Hgb Conc. 35.3 g/dL (33.0-37.0); Mean Corpuscular Hgb 37.1 pg (27.0-31.0); Mean Corpuscular Volume 105.3 fL (80.0-94.0); Mean Platelet Volume 10.8 fL (7.4-10.4); Platelet Count 164 10^3/uL (130-400); Red Blood Cell Count 3.61 10^6/uL (4.70-6.10); Red Cell Dist. Width 13.8 % (11.5-14.5); White Blood Cell Count 8.7 10^3/uL (4.8-10.8)
[2023-12-15 17:50] LABS: ALT (SGPT) 63 U/L (0-50); AST (SGOT) 200 U/L (17-59); Albumin 4.2 g/dl (3.5-5.0); Alkaline Phosphatase 127 U/L (38-126); Blood Urea Nitrogen 16 mg/dl (9-20); Calcium 10.2 mg/dl (8.4-10.2); Carbon Dioxide 32 mmol/L (22-30); Chloride 99 mmol/L (98-107); Glucose 140 mg/dl (70-99); Potassium 4.3 mmol/L (3.5-5.1); Sodium 144 mmol/L (135-145); Total Bilirubin 0.8 mg/dl (0.2-1.3); Total Protein 7.1 g/dl (6.3-8.2); eGFR > 60.00
[2023-12-15 18:32] LABS: % Basophils 0.6 % (0-2); % Eosinophils 0.7 % (0-6); % Immature Granulocytes 0.2 % (0-0.5); % Lymphocytes 50.3 % (20.5-51.1); % Neutrophils 34.2 % (42.2-75.2); Absolute Basophils 0.1 10^3/uL (0-0.2); Absolute Eosinophils 0.1 10^3/uL (0-0.7); Absolute Lymphocytes 4.4 10^3/uL (1.2-3.4); Absolute Monocytes 1.2 10^3/uL (0.1-0.6); Nucleated Red Blood Cells % 0 % (-)
[2023-12-15 20:19] VITALS: BP 159/79
[2023-12-15 21:12] LABS: Magnesium 0.9 mg/dl (1.6-2.3)
--- NOTE | 2023-12-15 21:51 | EDRN ---
This RN was informed by , the Ip Attorney, that the patients Mag was 0.9. Dr. Guevara notified.
== END 2023-12-15 20:56 | disposition home or self-care (01) ==
LOC: EMR 17:04
PROVIDERS: Physician Assistant Medical; EMERGENCY PHYSICIAN Emergency Medicine; FAMILY PHYSICIAN Internal Medicine Geriatric Medicine
DX: R25.1 Tremor, unspecified (principal); E78.00 Pure hypercholesterolemia, unspecified; I10 Essential (primary) hypertension
CPT/HCPCS: 99283; 80053; 83735; 85025

== ENCOUNTER → 2023-12-22 07:18 | Outpatient (REF) | payer MEDICARE, SELFPAY | LOC: PAVMRI 07:18 | PROVIDERS: ATTENDING PHYSICIAN Internal Medicine Geriatric Medicine | DX: M54.12 Radiculopathy, cervical region (principal); M54.2 Cervicalgia | CPT/HCPCS: 72141 ==

== ENCOUNTER 2024-01-09 14:03 | Emergency (ER) | payer MEDICARE, SELFPAY ==
[2024-01-09 14:07] VITALS: BP 138/80
[2024-01-09 16:24] VITALS: BMI 37.2
[2024-01-09 16:30] LABS: % Basophils 0.7 % (0-2); % Eosinophils 0.1 % (0-6); % Immature Granulocytes 0.6 % (0-0.5); % Lymphocytes 14.8 % (20.5-51.1); % Monocytes 16.9 % (1.7-9.3); % Neutrophils 66.9 % (42.2-75.2); Absolute Basophils 0.1 10^3/uL (0-0.2); Absolute Immature Granulocytes 0.1 10^3/uL (0-0.05); Absolute Lymphocytes 1.5 10^3/uL (1.2-3.4); Absolute Monocytes 1.7 10^3/uL (0.1-0.6); Absolute Neutrophils 6.9 10^3/uL (1.4-6.5); Hematocrit 36.2 % (39.0-52.0); Hemoglobin 12.9 g/dL (13.0-18.0); Mean Corp Hgb Conc. 35.6 g/dL (33.0-37.0); Mean Corpuscular Hgb 36.5 pg (27.0-31.0); Mean Corpuscular Volume 102.5 fL (80.0-94.0); Mean Platelet Volume 10.9 fL (7.4-10.4); Nucleated Red Blood Cells % 0 % (-); Platelet Count 179 10^3/uL (130-400); Red Blood Cell Count 3.53 10^6/uL (4.70-6.10); Red Cell Dist. Width 14.3 % (11.5-14.5); White Blood Cell Count 10.3 10^3/uL (4.8-10.8)
[2024-01-09 16:44] LABS: ALT (SGPT) 136 U/L (0-50); AST (SGOT) 341 U/L (17-59); Albumin 4.7 g/dl (3.5-5.0); Alkaline Phosphatase 191 U/L (38-126); Blood Urea Nitrogen 20 mg/dl (9-20); Calcium 10.3 mg/dl (8.4-10.2); Carbon Dioxide 23 mmol/L (22-30); Chloride 99 mmol/L (98-107); Estimated Creatinine Clearance 69 ml/min; Glucose 126 mg/dl (70-99); Potassium 4.9 mmol/L (3.5-5.1); Sodium 139 mmol/L (135-145); Total Bilirubin 1.7 mg/dl (0.2-1.3); Total Protein 7.6 g/dl (6.3-8.2); eGFR > 60.00
[2024-01-09 16:55] LABS: NT-proBNP 77.8 pg/ml; Troponin I < 0.012 ng/ml
[2024-01-09 17:00] VITALS: BP 179/85
--- NOTE | 2024-01-09 18:00 | ED.GENMED ---
History of Present Illness
General
Chief Complaint: Breathing Problem
Source: patient
Exam Limitations: none
Time Seen by Provider: 01/09/24 17:36
History of Present Illness
History of Present Illness:
See MDM
Past History
Past History
ED Past Medical History: HTN, Hypercholesterolemia and Other (gout)
ED Past Surgical History: Orthopedic (back surgery)
Social History
Tobacco: Non-smoker
Alcohol: Occasional
Drug: None
Personal: Partner
Living: with family
Phy Exam
Physical Exam
Physical Exam:
See MDM
Scores
Heart Failure Risk
Heart Failure Risk Score: Not Applicable
Course
Orders/Labs/Results
Orders:
Orders
01/09/24 14:04
Electrocardiogram (*1) Urgent
Reason for Study: Chest Pain
EKG- Treatment ONCE
01/09/24 16:22
Complete Blood Count/With Diff Urgent
Comprehensive Metabolic Panel Urgent
Pro-BNP [NT-proBNP] Urgent
Troponin I Urgent
01/09/24 17:51
CT Chest Pe Study Urgent
Comment:
Reason For Exam: SOB and tachycardic
01/09/24 18:28
Ondansetron Injectable [Zofran] 4 mg IV NOW STA
01/09/24 19:23
Labetalol HCl [Trandate] 10 mg IV NOW STA
01/09/24 19:57
Aspirin Chewable [Low Strength Aspirin] 81 mg PO NOW STA
Abnormal Lab Results
01/09/24
16:22
RBC 3.53 L 10^6/uL
(4.70-6.10)
Hgb 12.9 L g/dL
(13.0-18.0)
Hct 36.2 L %
(39.0-52.0)
MCV 102.5 H fL
(80.0-94.0)
MCH 36.5 H pg
(27.0-31.0)
MPV 10.9 H fL
(7.4-10.4)
Abs Immat Gran (auto) 0.1 H 10^3/uL
(0-0.05)
Absolute Neuts (auto) 6.9 H 10^3/uL
(1.4-6.5)
Absolute Monos (auto) 1.7 H 10^3/uL
(0.1-0.6)
Immature Gran % 0.6 H %
(0-0.5)
Lymphocytes % 14.8 L %
(20.5-51.1)
Monocytes % 16.9 H %
(1.7-9.3)
Glucose 126 H mg/dl
(70-99)
Calcium 10.3 H mg/dl
(8.4-10.2)
Total Bilirubin 1.7 H mg/dl
(0.2-1.3)
AST 341 H U/L
(17-59)
ALT 136 H U/L
(0-50)
Alkaline Phosphatase 191 H U/L
(38-126)
01/09/24 16:22
01/09/24 16:22
Vital Signs
Initial and Last Documented VS:
Initial Vital Signs
Temp Pulse Resp BP Pulse Ox
98 F 121 16 138/80 99
01/09/24 14:07 01/09/24 14:07 01/09/24 14:07 01/09/24 14:07 01/09/24 14:07
Last Documented Vital Signs
Temp Pulse Resp BP Pulse Ox
98 F 102 19 197/91 95
01/09/24 14:07 01/09/24 19:50 01/09/24 19:17 01/09/24 19:50 01/09/24 19:17
MDM/Problems Addressed
Differential Diagnosis Includes:
HPI and MDM Narrative:
78-year-old male presenting with progressive shortness of breath with exertion. Patient states this has progressed over the past 6 months or so. He does follow with Dr. Norton. He denies any specific cardiac issues in the past but states his PCP
thought this would be a good idea. Patient claims he had a normal stress test not too long ago. He saw his PCP a few days ago and his blood pressure medicine was decreased due to the concern that this could be hypertension related. However, he
saw his PCP again today and there was concern for changes.
Blood work was done prior to my evaluation. We did discuss his elevated LFTs. Patient states been on ongoing issue. I discussed normal troponin and BNP. We discussed nonspecific lateral T wave changes. In the right setting, patient could have
had a heart attack several months ago which would still cause his troponin to be normal. Given his mild tachycardia, will obtain CT to rule out PE. I did offer and suggest admission to see cardiology and an echocardiogram. Patient understands my
concerns and the risks involved and states he wants to go home. If CT negative, will start aspirin and placed on cardiac callback tracker
Physical exam
General: Well appearing and non-toxic
HEENT: protecting airway
Neck: appears supple
CV: No evidence of cyanosis. Mild tachycardia
Resp: No accessory muscle use. Lungs clear
Abd: Non-distended
Extremities: No deformities. No leg edema or unilateral tenderness
Neuro: alert
Psych: Normal affect
Skin: Intact
Problems Addressed including Acute and Chronic Conditions affecting care:
1. Exertional dyspnea
Acuity: acute
Prognosis: stable
Details: Discussed possible ACS. Troponin negative but he could have had an event several months ago
Updates
CT negative for acute pathology. I again discussed admitting. Patient states he wants go home and understands risks. Discussed outpatient follow-up with Cardiology. Discussed starting a baby aspirin until told otherwise by cardiology. Discussed
restarting his hydrochlorothiazide
Differential Diagnosis (but not limited to): ACS, PE, pneumonia
Testing considered: Second troponin
Drug therapy (if applicable): OTC meds, please see d/c instruction regarding Rx drugs
Amount and/or Complexity of Data Reviewed
Clinical info obtained from: Patient
External data reviewed: N/A
Labs I independently reviewed (but not limited to): Elevated LFTs, troponin normal
Radiology: The CT scan was personally and independently reviewed. In addition, official CT report reviewed.
Pulse Ox: not hypoxic
EKG independently reviewed: Sinus rhythm, normal axis, nonspecific T wave abnormality
Traffic Administrator: Sinus rhythm
Critical Care: N/A
Risk of Complication:
Social Determinants of health: Good social support
Discussed with other providers: N/A
Escalation of Care includes Admit/Obs: I discussed and suggested admission but patient wants to be discharged home.
Occasional wrong word or 'sound a like' substitutions may have occurred due to the inherent limitations of voice recognition software. Read the chart carefully and recognize, using context, where substitutions have occurred.
*Critical Care Note
Total Time (30-74mins, 75-104mins- exclusive of procedures): Not Applicable
ED Attending Note
-
Portions of this chart may have been created with voice recognition software.� Occasional wrong word or��sound alike� substitutions may have occurred due to the inherent limitations of voice recognition software.
Discharge Plan
Departure
Patient Disposition: Home (Routine Discharge)
Date of Disposition: 01/09/24
Time of Disposition: 20:02
Patient with high blood pressure during this ER visit?: Yes
Discharge Problem:
Exertional dyspnea
Instructions: Chest Pain DCA Follow Up, BLOOD PRESSURE
Prescriptions:
No Action
atorvastatin 20 MG tablet
20 mg PO DAILY
Centrum Silver 1 EACH tablet
1 ea PO DAILY
allopurinol 300 MG tablet
300 mg PO DAILY
furosemide 40 MG tablet
20 mg PO DAILY
trazodone 50 mg Tablet
50 - 100 mg PO HS
losartan 100 mg Tablet
100 mg PO DAILY
tamsulosin [Flomax] 0.4 mg capsule
0.4 mg PO HS Qty: 7 0RF
Patient Comments:
started 3 day ago as ordered
Rx Instructions:
start 3 nights b/f surgery
aspirin 325 mg tablet
325 mg PO DAILY Qty: 1 0RF
Rx Instructions:
Take with food
docusate sodium [Colace] 100 mg capsule
100 mg PO BID Qty: 1 0RF
famotidine 20 mg tablet
20 mg PO HS Qty: 30 0RF
Rx Instructions:
post-op
Saccharomyces boulardii [Florastor] 250 mg capsule
250 mg PO BID Qty: 1 0RF
gabapentin 300 mg capsule
300 mg PO BID Qty: 20 0RF
meloxicam 15 mg tablet
15 mg PO DAILY Qty: 14 0RF
Rx Instructions:
take with food
post-op
magnesium hydroxide [Milk of Magnesia] 400 mg/5 mL suspension
30 ml PO HS PRN (Reason: Constipation) Qty: 1 0RF
sennosides [Senokot] 8.6 mg tablet
17.2 mg PO BID Qty: 2 0RF
prednisone 10 mg tablet
40 mg PO TAPER Qty: 20 0RF
Rx Instructions:
4 TABS X 2 DAYS, 3 TABS X 2 DAYS, 2 TABS X 2 DAYS, 1 TAB X 2 DAYS, THEN STOP
acetaminophen [Tylenol] 325 mg capsule
650 mg PO QID Qty: 2 0RF
tramadol 50 mg tablet
50 mg PO BID Qty: 20 0RF
Rx Instructions:
Dx Orthopedic surgery
Ongoing therapy
post-op
propranolol [Inderal LA] 60 mg capsule,extended release 24 hr
60 mg PO DAILY Qty: 30 0RF
magnesium sulfate 100 mg capsule
200 mg PO BID Qty: 20 0RF
Referrals:
Ismael Norton MD [Active] -
Flip Montoya MD [Family Provider] -
Activity Restrictions/Additional Instructions:
Please return for any worsening symptoms.
You may return at any time if you have further concerns.
Please follow up with your doctor at the first available appointment, preferably this week.
You were placed on the cardiac callback tracker. Someone from their office should call you in the next few days. If you do not hear from them in the next few days, please give them a call. Please discuss obtaining a echocardiogram.
Please take a baby aspirin daily until seen by cardiology. Please restart your hydrochlorothiazide.
Thank you for choosing [facility].
Interventions
Interventions:
*Risk Screen - Suicide Last Done: 01/09/24 14:07
*General Assessment Last Done: 01/09/24 14:07
*Neglect/Abuse Screening Last Done: 01/09/24 14:07
ED- Fall Risk Assessment Last Done: 01/09/24 16:15
*ED COVID-19 Vaccine History Last Done: 01/09/24 16:15
ED- Cardiac Assessment Last Done: 01/09/24 16:15
ED- Pulmonary Assessment Last Done: 01/09/24 16:23
Discharge Date and Time
Print Language: ANGOLAN
[2024-01-09] MEDS: ZOFRAN 4 MG IV (18:36)
[2024-01-09 19:00] VITALS: BP 196/101
[2024-01-09 19:17] VITALS: BP 197/91
[2024-01-09] MEDS: TRANDATE 10 MG IV (19:50)
[2024-01-09 20:10] VITALS: BP 166/89
[2024-01-09] MEDS: LOW STRENGTH ASPIRIN 81 MG PO (20:10)
== END 2024-01-09 20:26 | disposition home or self-care (01) ==
LOC: EMR 14:03
PROVIDERS: EMERGENCY PHYSICIAN Student in an Organized Health Care Education/Training Program; FAMILY PHYSICIAN Internal Medicine Geriatric Medicine
DX: R06.09 Other forms of dyspnea (principal); I10 Essential (primary) hypertension
CPT/HCPCS: 99285; 96374; 96375; 71275; 80053; 83880; 84484; 85025; 93005; Q9967

== ENCOUNTER → 2024-01-26 11:40 | Outpatient (REF) | payer MEDICARE, SELFPAY | LOC: RCS 11:40 | PROVIDERS: ATTENDING PHYSICIAN Nurse Practitioner; FAMILY PHYSICIAN Internal Medicine Geriatric Medicine | DX: I10 Essential (primary) hypertension (principal) | CPT/HCPCS: 93306 ==

== ENCOUNTER → 2024-06-04 08:58 | Outpatient (REF) | payer MEDICARE, SELFPAY ==
[2024-06-04 09:43] LABS: % Basophils 0.7 % (0-2); % Eosinophils 1.6 % (0-6); % Immature Granulocytes 0.1 % (0-0.5); % Lymphocytes 34.3 % (20.5-51.1); % Monocytes 12.5 % (1.7-9.3); % Neutrophils 50.8 % (42.2-75.2); Absolute Basophils 0.1 10^3/uL (0-0.2); Absolute Eosinophils 0.1 10^3/uL (0-0.7); Absolute Lymphocytes 2.9 10^3/uL (1.2-3.4); Absolute Monocytes 1.1 10^3/uL (0.1-0.6); Absolute Neutrophils 4.3 10^3/uL (1.4-6.5); Hematocrit 39.7 % (39.0-52.0); Hemoglobin 13.4 g/dL (13.0-18.0); Mean Corp Hgb Conc. 33.8 g/dL (33.0-37.0); Mean Corpuscular Volume 103.7 fL (80.0-94.0); Mean Platelet Volume 11.3 fL (7.4-10.4); Nucleated Red Blood Cells % 0 % (-); Platelet Count 148 10^3/uL (130-400); Red Blood Cell Count 3.83 10^6/uL (4.70-6.10); Red Cell Dist. Width 12.7 % (11.5-14.5); White Blood Cell Count 8.5 10^3/uL (4.8-10.8)
[2024-06-04 10:41] LABS: Glycohemoglobin (HgbA1c) 5.5 % (4.0-5.6)
[2024-06-04 10:51] LABS: ALT (SGPT) 27 U/L (0-50); AST (SGOT) 48 U/L (17-59); Albumin 3.7 g/dl (3.5-5.0); Alkaline Phosphatase 114 U/L (38-126); Blood Urea Nitrogen 15 mg/dl (9-20); Calcium 10.5 mg/dl (8.4-10.2); Carbon Dioxide 28 mmol/L (22-30); Chloride 105 mmol/L (98-107); Glucose 112 mg/dl (70-99); HDL Cholesterol 44 mg/dl; LDL Cholesterol, Calculated 115 mg/dl; Potassium 4.5 mmol/L (3.5-5.1); Sodium 142 mmol/L (135-145); Total Bilirubin 0.9 mg/dl (0.2-1.3); Total Cholesterol 182 mg/dl (50-199); Total Protein 6.7 g/dl (6.3-8.2); Triglyceride 115 mg/dl (10-149); Very Low Density Lipoprotein 23 mg/dl (0-30); eGFR > 60.00
[2024-06-04 12:00] LABS: Vitamin B12 829 pg/ml (239-931)
== END ==
LOC: REG 08:58
PROVIDERS: ATTENDING PHYSICIAN Internal Medicine
DX: R53.82 Chronic fatigue, unspecified (principal); E66.01 Morbid (severe) obesity due to excess calories; R73.01 Impaired fasting glucose; E78.2 Mixed hyperlipidemia; D51.9 Vitamin B12 deficiency anemia, unspecified
CPT/HCPCS: 36415; 80053; 80061; 82607; 82746; 83036; 85025

== ENCOUNTER → 2024-07-12 08:57 | Outpatient (REF) | payer MEDICARE, SELFPAY | LOC: RAD 08:57 | PROVIDERS: ATTENDING PHYSICIAN Internal Medicine; FAMILY PHYSICIAN Internal Medicine Geriatric Medicine | DX: I87.2 Venous insufficiency (chronic) (peripheral) (principal) | CPT/HCPCS: 93971 ==

== ENCOUNTER → 2024-10-09 11:04 | Outpatient (REF) | payer MEDICARE, SELFPAY ==
[2024-10-09 12:15] LABS: Hematocrit 44.4 % (39.0-52.0); Hemoglobin 15.1 g/dL (13.0-18.0); Mean Corp Hgb Conc. 34.0 g/dL (33.0-37.0); Mean Corpuscular Volume 103.5 fL (80.0-94.0); Nucleated Red Blood Cells % 0 % (-); Platelet Count 138 10^3/uL (130-400); Red Cell Dist. Width 13.3 % (11.5-14.5)
[2024-10-09 12:47] LABS: ALT (SGPT) 47 U/L (0-50); AST (SGOT) 92 U/L (17-59); Albumin 4.5 g/dl (3.5-5.0); Alkaline Phosphatase 98 U/L (38-126); Blood Urea Nitrogen 12 mg/dl (9-20); Calcium 10.3 mg/dl (8.4-10.2); Carbon Dioxide 30 mmol/L (22-30); Chloride 103 mmol/L (98-107); Glucose 122 mg/dl (70-99); HDL Cholesterol 67 mg/dl; LDL Cholesterol, Calculated 138 mg/dl; Potassium 5.0 mmol/L (3.5-5.1); Sodium 141 mmol/L (135-145); Total Protein 7.7 g/dl (6.3-8.2); Very Low Density Lipoprotein 22 mg/dl (0-30); eGFR > 60.00
== END ==
LOC: REG 11:04
PROVIDERS: ATTENDING PHYSICIAN Internal Medicine Geriatric Medicine
DX: E66.9 Obesity, unspecified (principal); I10 Essential (primary) hypertension; E78.2 Mixed hyperlipidemia; M10.9 Gout, unspecified; M48.062 Spinal stenosis, lumbar region with neurogenic claudication; G47.33 Obstructive sleep apnea (adult) (pediatric); G89.29 Other chronic pain; E83.52 Hypercalcemia; R73.01 Impaired fasting glucose; R00.0 Tachycardia, unspecified; G62.9 Polyneuropathy, unspecified; R26.9 Unspecified abnormalities of gait and mobility; R26.89 Other abnormalities of gait and mobility; I50.33 Acute on chronic diastolic (congestive) heart failure
CPT/HCPCS: 36415; 80053; 80061; 83880; 85025

== ENCOUNTER 2024-10-18 07:00 | Outpatient (RCR) | payer MEDICARE, SELFPAY | END 2024-10-18 23:59 | disposition home or self-care (01) | LOC: ROT 07:00 | PROVIDERS: ATTENDING PHYSICIAN Orthopaedic Surgery Hand Surgery; FAMILY PHYSICIAN Internal Medicine Geriatric Medicine | DX: Z47.89 Encounter for other orthopedic aftercare (principal); M72.0 Palmar fascial fibromatosis [Dupuytren]; Z73.6 Limitation of activities due to disability | CPT/HCPCS: 97535; 97760 ==

== ENCOUNTER → 2024-11-29 11:45 | Outpatient (REF) | payer MEDICARE, SELFPAY ==
[2024-11-29 12:50] LABS: Blood Urea Nitrogen 29 mg/dl (9-20); Calcium 9.5 mg/dl (8.4-10.2); Carbon Dioxide 28 mmol/L (22-30); Chloride 98 mmol/L (98-107); Glucose 110 mg/dl (70-99); Potassium 4.2 mmol/L (3.5-5.1); Sodium 137 mmol/L (135-145); eGFR 51.77
== END ==
LOC: REG 11:45
PROVIDERS: ATTENDING PHYSICIAN Internal Medicine Geriatric Medicine
DX: I10 Essential (primary) hypertension (principal); E78.2 Mixed hyperlipidemia; M10.9 Gout, unspecified; M48.062 Spinal stenosis, lumbar region with neurogenic claudication; G47.33 Obstructive sleep apnea (adult) (pediatric); G89.29 Other chronic pain; E83.52 Hypercalcemia; R73.01 Impaired fasting glucose; R00.0 Tachycardia, unspecified; G62.9 Polyneuropathy, unspecified; Z13.89 Encounter for screening for other disorder; R26.9 Unspecified abnormalities of gait and mobility; R26.89 Other abnormalities of gait and mobility; I50.33 Acute on chronic diastolic (congestive) heart failure; Z23 Encounter for immunization
CPT/HCPCS: 36415; 80048